=== PATIENT | female | born 1995 | race Caucasian/White ===

== ENCOUNTER 2017-09-22 18:32 | Emergency (ER) | payer MEDICAID ==
[2017-09-22 19:51] LABS: CALCIUM 8.9 mg/dL (8.5-10.1); CARBON DIOXIDE 29.1 mmol/L (21-32); CHLORIDE SERUM 105 mmol/L (98-107); CREATININE SERUM 0.6 mg/dL (0.6-1.0); GFR1 > 60 mL/min; GLUCOSE SERUM 101 mg/dL (74-106); SODIUM SERUM 140 mmol/L (136-145)
[2017-09-22 19:52] LABS: PLATELET COUNT 244 x10^3mcL (130-400); RED CELL DISTRIBUTION WIDTH 12.7 % (11.5-14.5)
[2017-09-22 19:56] LABS: ALBUMIN 3.5 g/dL (3.4-5.0); ALKALINE PHOSPHATASE 246 U/L (46-116); ALT/SGPT 189 U/L (14-59); AST/SGOT 396 U/L (15-37); BILIRUBIN TOTAL 0.74 mg/dL (0.20-1.00); CHOLESTEROL 169 mg/dL (<200); LIPASE 108 IU/L (73-393); TOTAL PROTEIN, SERUM 7.1 g/dL (6.4-8.2); TRIGLYCERIDES 90 mg/dL (<150)
[2017-09-22 20:03] LABS: FREE T4 0.97 ng/dL (0.76-1.46); FREE THYROXINE INDEX 2.1 ug/dL (1.4-4.5); T4(THYROXINE) 6.3 ug/dL (4.7-13.3)
[2017-09-22 20:03] LABS: microscopic required? YES; urine erythrocyte NEGATIVE (NEGATIVE)
[2017-09-22 20:08] LABS: CHOLESTEROL/HDL RATIO 2.6; HDL CHOLESTEROL 65 mg/dL (40-60)
[2017-09-22 20:36] LABS: T3 TOTAL 0.96 ng/mL
[2017-09-22 21:23] VITALS: BP 106/74
== END 2017-09-22 21:23 | disposition home or self-care (01) ==
LOC: ED 18:32
PROVIDERS: Specialist
DX: K80.50 Calculus of bile duct without cholangitis or cholecystitis without obstruction (principal)
CPT/HCPCS: 83880; 84439; J1885; J2405; J3010; J7030; Q0092

== ENCOUNTER 2018-07-15 17:45 | Emergency (ER) | payer MEDICAID ==
[~2018-07-15] VITALS: Ht 157.5 cm; Wt 83.9 kg
[2018-07-15 17:51] VITALS: Ht 157.5 cm; Wt 83.9 kg
[2018-07-15 21:11] VITALS: BP 108/75
== END 2018-07-15 21:11 | disposition home or self-care (01) ==
LOC: ED 17:45
DX: S16.1XXA Strain of muscle, fascia and tendon at neck level, initial encounter (principal); S09.8XXA Other specified injuries of head, initial encounter; Y04.8XXA Assault by other bodily force, initial encounter; Y93.89 Activity, other specified; Y92.89 Other specified places as the place of occurrence of the external cause; Y99.8 Other external cause status
CPT/HCPCS: Q0092